=== PATIENT | male | born 1985 | race Hispanic/Latino ===

== ENCOUNTER 2017-09-18 06:22 | Day surgery (SDC) | payer OTHER ==
[2017-09-08 08:14] VITALS: BMI 22.1
[2017-09-18] MEDS ORDERED: EPINEPHrine 1:1000 Nasal Sol(30mL) ONE (07:30)
[2017-09-18] MEDS ORDERED: ceFAZolin IV 2 gm in Dextrose 1 GM/50 ML BAG IVPB ONE (07:30)
[2017-09-18] MEDS ORDERED: Propofol 10 mg/ml Inj (20 ML) ONE ×2 (07:41→10:46)
[2017-09-18] MEDS ORDERED: Midazolam 2 MG/2 ML VIAL ONE (07:41)
[2017-09-18] MEDS ORDERED: Rocuronium 10 mg/ml (10 ml) ONE ×2 (07:43→08:50)
[2017-09-18] MEDS ORDERED: Succinylcholine Chloride 20 mg/ml Syr (5 ml) IV ONE (07:43)
[2017-09-18] MEDS ORDERED: Lactated Ringer's 1,000 ML IV ONE ×2 (07:45→10:00)
[2017-09-18] MEDS ORDERED: Morphine 4 MG/ML VIAL ONE (09:00)
[2017-09-18] MEDS: HYDROmorphone 0.5 mg/0.5 ml ISec IVP PRN ×2 (11:15→12:11)
[2017-09-18] MEDS ORDERED: HYDROmorphone 0.5 mg/0.5 ml ISec ONE (11:17)
[2017-09-18] MEDS ORDERED: Bupivacaine HCl 0.5% PF (10 ml) Inj ONE (12:42)
--- NOTE | 2017-09-18 13:26 | PCM.ANESB7 ---
Adductor Canal Block - Adductor Canal Block Date of Procedure: 09/18/17 Procedure Performed: Adductor Canal Block Left - Procedure Adductor Canal Block: The procedure was explained to the patient that it is for the post-operative pain management. Consent was obtained after a thorough discussion with the patient regarding the benefits and possible complications of local anesthetic adductor canal block of the femoral nerve. Standard monitors, as defined by the ASA, were applied to the patient. Time-out was held with the circulating nurse to confirm the appropriate block. After applying supplemental oxygen and administering IV Sedation as needed, the patient was placed in supine position with and the operative leg was flexed slightly at the knee and externally rotated as needed, and was kept anatomically stable. The mid-thigh of the _left _ lower extremity was exposed. The ultrasound transducer was then applied transversely along the medial aspect, about midway down the thigh and the femoral artery and vein were identified in appropriate relation with the sartorius muscle. At this time, the femoral nerve was visualized lateral to the femoral artery within the canal. After thorough identification, this area area was prepped with Chloroprep solution three times and 1 % Lidocaine was injected subcutaneously for topical anesthesia. At this point, a #21 gauge Stimuplex 4-inch needle was inserted in-plane in a [id number] orientation, and advanced toward the femoral nerve. Advancement was performed carefully under direct ultrasound visualization. After negative aspiration, cc of % was injected and this was followed with _18__ cc of _0.5 % bupivacaine . Under ultrasound guidance the local anesthetics were observed spreading around the femoral nerve. The needle was removed intact and sterile dressing was applied. The patient had stable vital signs, was conscious and in no apparent distress. The patient tolerated the femoral nerve block well with stable vital signs and good analgesia
[2017-09-18 14:19] VITALS: BP 114/70; PULSE 90; RESP 18; TEMP 97; O2SAT 100
--- NOTE | 2017-10-07 14:59 | PCM.SURG1 ---
Surgeon's Initial Post Op Note - Surgeon's Notes Surgeon: Aubree Dyer MD Diploma Pharmacy Technician: Wanda Mcdaniel PA-C Type of Anesthesia: General Endo, Block Regional Pre-Operative Diagnosis: Left knee #1 ACL tear. #2 medial meniscal tear Operative Findings: Left knee #1 ACL tear. #2 medial meniscal tear (peripheral re-red zone tear/ capsular seperation). #3 area of full thickness cartialge defect at MFC anterior/WB area measuring 3x6mm. #4 synovitis & plica band Post-Operative Diagnosis: Left knee #1 ACL tear. #2 medial meniscal tear ( peripheral re-red zone tear/ capsular seperation). #3 area of full thickness cartialge defect at MFC anterior/WB area measuring 3x6mm. #4 synovitis & medial plica band Operation Performed: Left knee arthroscopic assited. #1 ACL reconstruction w/ allograft HS. #2 medial meniscal repair. #3 microfracture to MFC cartialge defect. #4 synovectomy and resection of plica band Specimen/Specimens Removed: specimen= none. complications= none. tourniquet time= 0min. implants= #1 Arthrex biocomposite [id number] interference screw, #2 tight rope button and suture. #2 Allograft HS tendon. #3 [facility] sequent all inside meniscal repair system (10 implants total placed, 3 kits opened) Estimated Blood Loss: EBL {In ML}: 5 Blood Products Given: N/A Post-Op Condition: Good Date of Surgery/Procedure: 09/18/17 Time of Surgery/Procedure: 15:00
--- NOTE | 2017-10-19 05:35 | OP ---
PROCEDURE DATE: 09/18/2017 PREOPERATIVE DIAGNOSES: Left knee: 1. Anterior cruciate ligament tear. 2. Medial meniscal tear. POSTOPERATIVE DIAGNOSES: Left knee: 1. Complete anterior cruciate ligament tear. 2. Medial meniscal tear (peripheral red-red zone tear/meniscal capsular separation). 3. Area of full-thickness cartilage defect at medial femoral condyle anterior/weightbearing area measuring 3 x 6 mm. 4. Synovitis and symptomatic medial plica band. PROCEDURE: Left knee arthroscopic-assisted: 1. Anterior cruciate ligament reconstruction with allograft hamstring. 2. Medical meniscal repair (all-inside). 3. Microfracture to medial femoral condyle, full-thickness cartilage defect. 4. Extensive synovectomy and resection of symptomatic plica band. SURGEON: Aubree Flores MD WEB MARKETING ANALYST: Wanda Mcdaniel PA-C JUSTIFICATION FOR WEB MARKETING ANALYST: Wanda Mcdaniel is a certified physician regulatory assistant whose skilled surgical services was an absolute necessity for successful completion of the procedure. He provided skilled surgical assistance with positioning of the patient, positioning of extremity, management of the surgical oh, retraction of neurovascular structures, preparation of ACL allograft, hamstring tendon, preparation of distal femur and proximal tibia ACL tunnels, passage of ACL graft and fixation of ACL graft to the distal femur and proximal tibia with good tension and anatomic reconstruction technique employed, all-inside medial meniscal repair, microfracture to medial femoral condyle, wound closure, placement and fitting postop range of motion brace. Wanda Mcdaniel was present for the entire case and was an absolute necessity for the successful completion of the procedure. TYPE OF ANESTHESIA: General endotracheal anesthesia with a postop regional nerve block placed by anesthesia staff in the PACU SPECIMEN: None. COMPLICATIONS: None. TOURNIQUET TIME: Zero minutes. ESTIMATED BLOOD LOSS: 5 mL. DISPOSITION: The patient was extubated and transferred to PACU in stable condition and tolerated the procedure well. IMPLANTS: 1. Arthrex biocomposite 10 mm x 28 mm biocomposite interference screw, tightrope button and suture with femoral sided fixation, allograft hamstring tendon. 2. Strut all-inside meniscal repair system with placement of 10 implants in total/3 kits opened for the medial meniscal repair. INDICATIONS FOR SURGERY: The patient is a 32-year-old male with no significant past medical history, who presents to the office for the first time at [facility] under my care on 09/08/2017 with left knee pain and instability for 2 months. The patient did not recall a big trauma, but stated that 2 months ago he does remember twisting his body over his knee while playing recreational sports. This has resulted in multiple episodes of giving way and recurrent pain localized to medial joint line. Initial evaluation in the office on physical examination, he felt to have ACL instability and positive medial Ngoc. He was referred for an MRI of the left knee, done at [facility] on 09/12/2017, which shows (read as): 1. Horizontal oblique tear of the body of the medial meniscus extending from the peripheral edge to the inferior articular surface. 2. A high-grade tear of the ACL. 3. Joint effusion. X-rays taken in the office on initial visit, showed no evidence of DJD with neutral alignment and joint spaces well maintained. Once again, the examination in the office with a 3+ anterior drawer with no endpoint, significant Pivot shift, 3+ Amadou with no endpoint. He was referred to Physical Therapy and was placed an [id number] ACL brace, which she obtained online. He was compliant with physical therapy and felt that his range of motion improved as well as his strength. He attempted return to sports without the brace on and was unable to, as every time he pivoted, he fell to the ground and reported recurrent episodes of instability and giving way as well as worsening medial joint line pain. We discussed treatment options which included an extended period of bracing and physical therapy with another attempt at return to play versus undergoing surgery, which would include ACL reconstruction with allograft versus autograft and medial meniscus repair versus partial medial meniscectomy. After attempting his return to play and having the progressively worsening medial joint line pain, he elected to proceed with surgery. He was also offered a cortisone injection, which he refused. Once again, he was indicated for left knee arthroscopic assisted ACL reconstruction with allograft versus autograft with medial meniscal repair versus partial meniscectomy and all related indicated arthroscopic procedures. The risks, benefits and alternatives of procedure were discussed at length with the patient with the risks including but not limited to infection, neurovascular damage, development of blood clots including DVT and PE, development of chronic pain and disability, stiffness, inability to return to pre-injury level of activity in play and sport, need for further surgery including manipulation under anesthesia from arthrofibrosis, failure of graft, failure of fixation for graft, failure of meniscus repair and failure of implants from meniscus repair, anesthesia reactions including . After answering all of his questions, the patient stated that he understood the risks and wished to proceed with surgery. He wants surgical animation videos and diagnoses animation videos and stated that he had a good understanding of his diagnosis as well as the procedure to be done. We discussed at length graft options including autograft BTB versus autograft hamstring versus allograft BTB versus allograft hamstring and after doing his own research online, and having multiple discussions about surgery, recovery and incision placement as well as risk of anterior knee pain and patella fracture. The patient decided after doing his own research to proceed with allograft hamstring for the ACL reconstruction. He was referred to his primary care physician for a preadmission testing and the procedure was scheduled at [facility] on 09/18/2017. PROCEDURE IN DETAIL: The patient was identified in the preoperative holding area and the left knee was marked for surgery. Once again as described above, the risks, benefits and alternatives of the procedure were discussed at length with the patient and informed consent was obtained. After a brief discussion with anesthesia staff, perioperative IV antibiotics in the form of 2 g of Ancef were administered and the patient was taken to the operating room and placed on the well-padded operating room table with all bony prominences and superficial neurovascular structures well padded. An initial time-out was done with the surgeon, anesthesia staff and OR staff and all in agreement with the patient, procedure to be done and the extremity to be operated on. General anesthesia was administered without difficulty or complication. An examination under anesthesia was then carried out. EXAMINATION UNDER ANESTHESIA: Left knee with no swelling, no warmth, no erythema, skin intact, full range of motion compared to contralateral knee from 0 to 140 degrees, significant instability with 3+ anterior linen aide neutral internal rotation and external rotation with no endpoint, 3+ Amadou with no endpoint, 3+ pivot shift with a pivot clunk, negative posterior drawer, negative reverse Amadou, negative reverse pivot shift, negative opening to medial or lateral joint line at 0 and 30 degrees with varus or valgus stress, patella with normal tracking, although there was a symptomatic plica band noted on exam that was recurrently causing a clicking at the medial aspect of the patella engaging at 30 degrees flexion throughout the flexion arc. CONTINUATION OF PROCEDURE: The left lower extremity was prepped and draped in standard sterile fashion and a tourniquet was placed high on the left thigh, but never inflated. A final time-out was done with the surgeon, anesthesia staff and OR staff, all in agreement with the patient, procedure to be done and the extremity to be operated on. The procedure was started with insufflation of 50 mL normal saline. Anterolateral portal was created with a stab incision through skin, down to the subcutaneous tissues, down to the level of the capsule and the blunt arthroscopic trocar and cannula were inserted into the suprapatellar pouch. Arthroscopic camera was inserted and insufflation of arthroscopic fluid was begun. With the use of spinal needle localization, optimal placements of anteromedial portal was identified and a stab incision was made to skin, down subcutaneous tissues, down to the level of capsule and a blunt arthroscopic trocar was inserted and knee joint was copiously irrigated for better visualization and removal of debris. With the use of the arthroscopic probe, a diagnostic arthroscopy was then carried out. DIAGNOSTIC ARTHROSCOPY: Attention was then first turned towards the suprapatellar pouch where there was no evidence of loose bodies or adhesions, although there were signs of significant synovitis. The patellofemoral joint did not exhibit any cartilage injury with the patella well seated within the trochlea with no evidence of instability. Attention then turned towards the medial gutter where immediately seen extending from the inferomedial aspect of the patella to the medial retinaculum was a thickened hypertrophic symptomatic plica band. Along the anterior aspect of knee joint there was significant hypertrophic synovium and synovitis as well as hypertrophic fat pad. Attention was then turn towards the medial compartments where with the use of the arthroscopic probe, the medial meniscus was carefully evaluated and found to have a peripheral tear at the junction of the posterior horn and body that measured at least 2 cm with complete detachment at the red-red zone. This was a full-thickness tear at the red-red zone/meniscal capsular separation extending from the inferior surface of the meniscus to the superior surface of the meniscus with the ability to sublux the posterior horn of the medial meniscus beyond the level of the midpoint of the medial femoral condyle, indicating significant instability of the medial meniscus. The medial femoral condyle was intact for the most part except at the lateral aspect of the weightbearing portion. At the anterior aspect of the medial femoral condyle there was a small area of full-thickness cartilage loss/injury measuring approximately 3 mm x 6 mm, which would receive a microfracture at the end of the surgery. The medial tibial plateau chondral surface was intact. Attention then was turned towards the notch where a torn ACL was visualized and examined with the probe with some fibers scarred into the PCL and few remnant fibers attached to the lateral femoral condyle, less than 5%. The PCL was intact. Attention then turned towards lateral compartment where an intact lateral femoral condyle, lateral tibial plateau and lateral meniscus were found after careful evaluation. With the use of arthroscopic shaver and radiofrequency ablation, an extensive synovectomy was carried out as well as debridement of the hypertrophic fat pad with good hemostasis achieved. The symptomatic plica band was also resected with the use of shaver and radiofrequency ablation with good hemostasis achieved. The remnant ACL stump was debrided to allow for access to the lateral femoral condyle anatomic insertion point and footprint for the ACL insertion at the lateral femoral condyle. The osage insertion point and footprint for the ACL at the tibial plateau was also identified and marked. Decision was then made to proceed with the all-inside medial meniscus repair and with the use of Strut all-inside meniscal repair system; 10 implants in total were placed. To start, 4 implants were placed with alternating horizontal and vertical mattress sutures with good capsular-sided fixation at the superior aspect of the medial meniscus at the junction of the posterior horn and mid-body. This provided a stable meniscal repair construct. To stabilize the hoop stresses on the medial meniscus an undersurface repair was also carried out with placement of 4 implants at the undersurface with alternating horizontal and vertical mattress sutures with good capsular-sided fixation, resulting and placement of 3 sutures at the superior aspect of the medial meniscus and the inferior aspect of the medial meniscus, reducing the medial meniscus to the posterior medial capsule, providing an excellent all-inside meniscal repair. Two more implants were placed at the posterior horn with good capsular-sided fixation to reinforce the all-inside meniscal repair. All-in-all, 10 implants were used, but this all-inside medial meniscal repair with good fixation and reduction of the medial meniscus and stability restored. At the end of the meniscal repair, we were unable to sublux the medial meniscus beyond the midpoint of the medial femoral condyle as before the repair and good stability was achieved. Attention then turned towards the ACL reconstruction. During this time, my regulatory assistant prepared the allograft hamstring for the ACL reconstruction including placement of the TightRope suture and the whipstitching of the graft. The graft doubled over and measured 9 mm and a 9 mm FlipCutter drill bit was used after the [id number]-yil ACL guide from Arthrex was secured around the lateral femoral condyle with intact back wall ensured and anatomic single bundle tunnel placement. The drill was advanced from outside to in after a small lateral incision at the distal femur was created with blunt dissection down to the level of the lateral cortex. The guide was advanced and snug on the lateral cortex and the FlipCutter drill was drilled from outside to in until it was seen in an intraarticular position. The FlipCutter was then flipped and a 9-mm diameter, 25-mm depth socket with no violation of the lateral cortex was created. The drill was then removed and the passage suture was then passed through the tunnel and secured around the outside of lateral femoral condyle. Attention then turned towards creation of the tibial tunnel and with the use of the ACL tibial guide from Arthrex, a full thickness 9-mm tunnel was created from outside to in after placement of the guidewire at the osage anatomical footprint of the ACL insertion. Once the tunnel was created to satisfaction, the soft tissue at the entry point of the tunnel at the proximal tibia was debrided and all debris and bony debris were removed. The graft was then passed through the tibia into the femoral tunnel. Under direct fluoroscopic visualization, the button was flipped, directly on to the lateral aspect of the lateral femoral condyle with no interposed soft tissue and the TightRope was then tightened, docking the doubled over 4-strand 9-mm allograft tendon into the socket up to the 25-mm jay on the tendon. Once this was done to satisfaction, ensured that we left at least 1 more millimeter for final tightening at the completion of the case. The knee was taken through 30 cycles of full extension and flexion under direct visualization and there was no impingement seen with good range of motion allowed and we were able to remove any creep from the allograft system. With my regulatory assistant holding tension on the graft and the knee held 10 degrees flexion with a posterior drawer applied by the surgical services coordinator, a 10 mm width x 28 mm length biocomposite interference screw from Arthrex was then placed into the tunnel with good fixation achieved. Knee stability was tested and indeed ACL stability was restored. Final tightening of the tightrope was carried out and arthroscopic evaluation of the ACL graft was carried out and found to be a successful ACL reconstruction with good stability achieved and a tight graft as an anatomical single bundle ACL reconstruction. Attention was then turned back to the medial compartment and the all-inside meniscal repair was evaluated again and the final 2 implants were placed with good capsular-sided fixation to reinforce the repair discussed previously at the superior aspect of the junction of the posterior horn and body of the medial meniscus. The medial meniscus also displayed a small area of white-white zone tearing at the free edge that was carefully debrided with use of arthroscopic shaver, radiofrequency ablation and arthroscopic biters, removing less than 5% of the medial meniscus overall. With the use of the arthroscopic curette, the region of full thickness cartilage injury was carefully debrided down to the stable subchondral bone and a stable rim of cartilage achieved. With the use of the microfracture awls, 2 microfracture holes were placed with adequate spacing and good bloody return of the fat globules. Once the microfracture was completed to satisfaction of the medial femoral condyle, final arthroscopic images were taken and knee stability was tested once again and final extensive synovectomy was carried out, while maintaining good hemostasis. All arthroscopic debris and fluid were removed and all wounds were reapproximated with #1 Vicryl suture for deep tissue and iliotibial band followed by 2-0 Vicryl suture for subcutaneous tissue followed by 3-0 Monocryl sutures for skin. All wound had been copiously irrigated as well prior to wound culture. Sterile dressings were applied followed by a layer sterile cast padding from the toes to the superior thigh followed by a layer of compressive Meño wrap from the toes up to the superior thigh. The knee was then placed in a postop hinged knee brace provided by the patient. The brace was fitted by myself and my regulatory assistant in the OR, once again, provided by the patient. Once the brace was secured and locked at full extension and fitted for the patient, the patient was then awakened from anesthesia and transferred to the PACU in stable condition. He tolerated the procedure well. DISPOSITION: The patient will be discharged home once he has recovered from anesthesia. He will be nonweightbearing for the lower extremity to protect the microfracture. He was instructed to start physical therapy on postoperative day #2 focusing on buddhist of range of motion. He was also taught and has been instructed and how to unlock the brace to work on range of motion on his own as well. He was instructed to keep the dressing clean, dry and intact and keep the brace on at all time until he follows up in the office at [facility] and already has his postoperative appointment setup next week. He has been given a prescription for prescription for Percocet for pain control. We discussed DVT prophylaxis at length and the patient elected to proceed with Lovenox 40 mg once daily to avoid any complications from DVT as much as possible and arrangements for made from him to obtain the medication. He will contact me directly with any questions or concerns. Aubree Dyer MD
== END 2017-09-18 15:55 | disposition home or self-care (01) ==
LOC: C.SDS 06:22
PROVIDERS: ATTEND Student in an Organized Health Care Education/Training Program
DX: S83.232D Complex tear of medial meniscus, current injury, left knee, subsequent encounter (principal); S83.512D Sprain of anterior cruciate ligament of left knee, subsequent encounter; S83.512A Sprain of anterior cruciate ligament of left knee, initial encounter
CPT/HCPCS: 29876; 29882; 29888; 97116; 97161; C1713; C1762; G8978; G8979; G8980; J0690; J1100; J1170; J2001; J2250; J2270; J2405; J2704; J3010; J7120